=== PATIENT | male | born 1955 | race Caucasian/White ===

== ENCOUNTER 2017-11-17 21:29 | Emergency (ER) | payer OTHER ==
[~2017-11-17] VITALS: Ht 170.2 cm; Wt 95.3 kg
[~2017-11-17 21:29] MED LIST: FLEXERIL PO; IBUPROFEN 800800 MG PO; MULTIVITAMINS1 EAC7; NORCO 5-325 TA1 EACH PO; TRAMADOL 50 MG50 MG PO
[2017-11-17] MEDS ORDERED: LISINOPRIL10 MG (21:55)
[2017-11-17] MEDS ORDERED: VENTOLIN HFA 1818 GM INH (22:22)
[2017-11-17] MEDS ORDERED: PREDNISONE 20 M20 M1 PO (22:22)
[2017-11-17] MEDS ORDERED: ZPAK PO (22:22)
[2017-11-17 23:00] VITALS: BP 132/84
== END 2017-11-17 23:00 | disposition home or self-care (01) ==
LOC: M.ERS 21:29
DX: J40 Bronchitis, not specified as acute or chronic (principal); F17.210 Nicotine dependence, cigarettes, uncomplicated; Z87.442 Personal history of urinary calculi

== ENCOUNTER 2020-09-20 09:58 | Emergency (ER) | payer OTHER ==
[~2020-09-20] VITALS: Ht 167.6 cm; Wt 95.3 kg
[~2020-09-20 09:58] MED LIST changes: +LISINOPRIL10 MG; +PREDNISONE 20 M20 M1 PO; +VENTOLIN HFA 1818 GM INH; +ZPAK PO
[2020-09-20] MEDS ORDERED: COZAAR 25 MG TA25 M1 PO (10:07)
[2020-09-20 11:17] VITALS: BP 174/88
== END 2020-09-20 11:18 | disposition home or self-care (01) ==
LOC: M.ERS 09:58
DX: S61.211A Laceration without foreign body of left index finger without damage to nail, initial encounter (principal); I10 Essential (primary) hypertension; F17.210 Nicotine dependence, cigarettes, uncomplicated; Z87.442 Personal history of urinary calculi; W26.8XXA Contact with other sharp object(s), not elsewhere classified, initial encounter; Y93.89 Activity, other specified; Y92.89 Other specified places as the place of occurrence of the external cause; Y99.8 Other external cause status